=== PATIENT | male | born 1955 | race Two or more races ===

== ENCOUNTER 2017-08-26 13:53 | Emergency (ER) | payer MEDICAID ==
[~2017-08-26] VITALS: Ht 165.1 cm; Wt 62.1 kg
[2017-08-26 13:55] VITALS: BP 115/65
[2017-08-26 14:10] LABS: HEMATOCRIT 38.4 % (42.0-52.0); HEMOGLOBIN 13.7 G/DL (14.2-18.0); MEAN CORPUSCULAR VOLUME 91 FL (80-99); PLATELET COUNT 257 K/UL (150-450); RED BLOOD COUNT 4.21 M/UL (4.70-6.10); WHITE BLOOD COUNT 11.6 K/UL (4.8-10.8)
[2017-08-26 14:21] LABS: ANION GAP 11 mmol/L (5-15); BLOOD UREA NITROGEN 30 mg/dL (7-18); CALCIUM 9.1 MG/DL (8.5-10.1); CARBON DIOXIDE 24 MMOL/L (21-32); CHLORIDE 104 MMOL/L (98-107); CREATININE 1.5 MG/DL (0.55-1.30); POTASSIUM 3.3 MMOL/L (3.5-5.1); SODIUM 139 MMOL/L (136-145)
--- NOTE | 2017-08-26 14:41 | Emergency Room Report ---
History of Present Illness General Chief Complaint: Male Urogenital Problems Source: Patient Present Illness HPI Patient presents with complaints of increased lower abdominal suprapubic fullness and discomfort Patient reports that he was recently at [facility] had Torrez catheter placed at that time felt that he was doing better However just recently again felt that the swelling was coming back and there was decreased urine output in the Torrez bag Pain is 6 out of 10 in the suprapubic area Denies any vomiting denies any fevers Patient reports that he recently finished a course of antibiotics Allergies: Coded Allergies: No Known Allergies (Unverified , 08/26/17) Patient History Past Medical History: see triage record Pertinent Family History: none Reviewed Nursing Documentation: PMH: Agreed; PSxH: Agreed Nursing Documentation-PMH Past Medical History: No History, Except For Review of Systems All Other Systems: negative except mentioned in HPI Physical Exam Vital Signs Date Time Temp Pulse Resp B/P (MAP) Pulse Ox O2 Delivery O2 Flow Rate FiO2 08/26/17 13:46 97.8 88 18 142/80 98 Room Air 97.9 Sp02 EP Interpretation: reviewed, normal General Appearance: well appearing, no apparent distress Head: normocephalic, atraumatic Eyes: bilateral eye PERRL, bilateral eye EOMI ENT: hearing grossly normal, normal pharynx, TMs + canals normal, uvula midline Neck: full range of motion, supple, no meningismus, no bony tend Respiratory: lungs clear, normal breath sounds, no rhonchi, no respiratory distress, no retraction, no accessory muscle use Cardiovascular #1: normal peripheral pulses, regular rate, rhythm, no edema, no gallop, no JVD, no murmur Gastrointestinal: normal bowel sounds, non tender, no organomegaly, non- distended, no guarding, no hernia, no pulsatile mass, no rebound, other - There was some increased fullness in the suprapubic area, nonpulsatile Genitourinary: no CVA tenderness Musculoskeletal: normal inspection Neurologic: oriented x3, responsive, 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, motor strength/ tone normal, sensory intact Psychiatric: mood/affect normal Skin: normal color, no rash, warm/dry, palpation normal Lymphatic: normal inspection, no adenopathy Medical Decision Making Diagnostic Impression: Primary Impression: Urinary retention ER Course Patient has Torrez catheter in place however feels that it has not been having appropriate output of urine It was attempted to be flushed however we were not able to appropriately evaluate the catheter Therefore this was replaced with a new catheter There was 700 mL of urine output and the patient's abdomen significantly improved Giving signs of likely obstruction of previous catheter Patient has follow-up with urology in the next 3 days Is recommended to follow up closely with them Labs Test 08/26/17 14:00 White Blood Count 11.6 K/UL (4.8-10.8) Red Blood Count 4.21 M/UL (4.70-6.10) Hemoglobin 13.7 G/DL (14.2-18.0) Hematocrit 38.4 % (42.0-52.0) Mean Corpuscular Volume 91 FL (80-99) Mean Corpuscular Hemoglobin 32.6 PG (27.0-31.0) Mean Corpuscular Hemoglobin Concent 35.7 G/DL (32.0-36.0) Red Cell Distribution Width 11.0 % (11.6-14.8) Platelet Count 257 K/UL (150-450) Mean Platelet Volume 6.5 FL (6.5-10.1) Neutrophils (%) (Auto) % (45.0-75.0) Lymphocytes (%) (Auto) % (20.0-45.0) Monocytes (%) (Auto) % (1.0-10.0) Eosinophils (%) (Auto) % (0.0-3.0) Basophils (%) (Auto) % (0.0-2.0) Differential Total Cells Counted 100 Neutrophils % (Manual) 89 % (45-75) Lymphocytes % (Manual) 5 % (20-45) Monocytes % (Manual) 6 % (1-10) Eosinophils % (Manual) 0 % (0-3) Basophils % (Manual) 0 % (0-2) Band Neutrophils 0 % (0-8) Platelet Estimate Adequate Platelet Morphology Normal Red Blood Cell Morphology Normal Sodium Level 139 MMOL/L (136-145) Potassium Level 3.3 MMOL/L (3.5-5.1) Chloride Level 104 MMOL/L (98-107) Carbon Dioxide Level 24 MMOL/L (21-32) Anion Gap 11 mmol/L (5-15) Blood Urea Nitrogen 30 mg/dL (7-18) Creatinine 1.5 MG/DL (0.55-1.30) Estimat Glomerular Filtration Rate 47.4 mL/min (>60) Glucose Level 118 MG/DL (74-106) Calcium Level 9.1 MG/DL (8.5-10.1) CT/MRI/US Diagnostic Results CT/MRI/US Diagnostic Results : Impression renal ultrasoundImpression: Mild bilateral hydronephrosis, etiology uncertain Thick walled irregular bladder. May in part be an artifact of under distention, but suspect real, could indicate cystitis, hypertrophy secondary to chronic outlet obstruction, or neoplasm. Slightly increased right renal echogenicity, suggestive of chronic medical renal disease Left renal cyst incidentally noted Last Vital Signs Date Time Temp Pulse Resp B/P (MAP) Pulse Ox O2 Delivery O2 Flow Rate FiO2 08/26/17 13:46 97.8 88 18 142/80 98 Room Air 97.9 Status: improved Disposition: HOME, SELF-CARE Condition: Improved Scripts Tamsulosin HCl (Flomax) 0.4 Mg Cap.er.24h 0.4 MG ORAL DAILY, #10 CAP Prov: Lisa Loving DO 08/26/17 Additional Instructions: Patient is provided with the discharge instructions notified to follow up with primary doctor in the next 2-3 days otherwise return to the er with any worsening symptoms. Please note that this report is being documented using [employer] technology. This can lead to erroneous entry secondary to incorrect interpretation by the dictating instrument. Lisa Loving DO Aug 26, 2017 14:41
--- NOTE | 2017-08-26 15:31 | Diagnostic Imaging Report ---
Indication: Abnormal renal function tests, evaluate Torrez catheter replacement Technique: Grayscale and duplex images of the kidneys, retroperitoneum, and bladder were obtained. Comparison: none Findings: Right kidney measures 11.7 cm in length. Left kidney measures 11.7 cm in length. Both kidneys demonstrate normal echogenicity. There is very mild hydronephrosis bilaterally. There is a left renal cyst. Normal inferior vena cava. Bladder is thick walled and irregular. A Torrez balloon is seen within the bladder lumen. The bladder is nondistended. The prostate volume is 32 mL Impression: Mild bilateral hydronephrosis, etiology uncertain Thick walled irregular bladder. May in part be an artifact of under distention, but suspect real, could indicate cystitis, hypertrophy secondary to chronic outlet obstruction, or neoplasm. Slightly increased right renal echogenicity, suggestive of chronic medical renal disease Left renal cyst incidentally noted
[2017-08-26 15:55] VITALS: BP_SYST 110; BP_SYST 121; BP_DIAS 63
[2017-08-26] MEDS ORDERED: FLOMAX0.4 MG ORAL (15:56)
== END 2017-08-26 15:55 | disposition home or self-care (01) ==
LOC: EDBD 13:53 → EMR 15:40
DX: R33.9 Retention of urine, unspecified (principal)
CPT/HCPCS: 36415; 76770; 80048; 85007; 85025; 99284